=== PATIENT | male | born 1970 | race African-American/Black ===

== ENCOUNTER 2023-01-21 10:30 | Outpatient (CLI) | payer OTHER, SELFPAY ==
--- NOTE | ~2023-01-21 | XR_ITS ---
Left foot Technique: AP and lateral standing views were obtained. Clinical History: Rheumatoid arthritis Findings: No acute fracture or dislocation is seen. Osseous alignment is anatomic. Joint spaces are p reserved without erosive or degenerative change. Soft tissues are unremarkable. Impression: Unremarkable left foot radiographs. Reviewed, dictated and finalized at location . Impression: Unremarkable left foot radiographs.
--- NOTE | ~2023-01-21 | XR_ITS ---
Right ankle Technique: AP, oblique, and lateral views were obtained. Clinical History: Rheumatoid arthritis Findings: No acute fracture or dislocation is seen. Osseous alignment is anatomic. Ankle mortise and other visualized joint spaces are preserved. Soft tissues are otherwise unremarkable. Impression: Unremarkable right ankle. Reviewed, dictated and finalized at location . Impression: Unremarkable right ankle.
--- NOTE | ~2023-01-21 | XR_ITS ---
Left ankle Technique: AP, oblique, and lateral views were obtained. Clinical History: Rheumatoid arthritis Findings: No acute fracture or dislocation is seen. Osseous alignment is anatomic. Ankle mortise and other visualized joint spaces are preserved. Soft tissues are otherwise unremarkable. Impression: Unremarkable left ankle. Reviewed, dictated and finalized at location . Impression: Unremarkable left ankle.
--- NOTE | ~2023-01-21 | XR_ITS ---
Right foot Technique: AP and lateral standing views were obtained. Clinical History: Rheumatoid arthritis Findings: No acute fracture or dislocation is seen. Osseous alignment is anatomic. Mild degenerative change at the first metatarsophalangeal joint noted. Remaining joint spaces are intact. Soft tissues are unremarkable. Impression: Mild osteoarthritis at the first metatarsophalangeal joint. Reviewed, dictated and finalized at [facility]. Impression: Mild osteoarthritis at the first metatarsophalangeal joint.
--- NOTE | ~2023-01-21 | XR_ITS ---
AP and oblique views of the SI joints CLINICAL HISTORY: Rheumatoid arthritis FINDINGS: No degenerative or erosive change of the SI joints noted. There is apparent sclerosis about the left SI joint. No fracture or subluxation evident. Bilateral hip joints appear intact. Soft tiss ues are unremarkable. IMPRESSION: Apparent sclerosis about the left SI joint, but no definite erosive change. Reviewed, dictated and finalized at location .
--- NOTE | ~2023-01-21 | XR_ITS ---
Lumbosacral Spine: AP and lateral views Clinical History: Pain Findings: The normal lordotic curve is maintained. No fracture or subluxation evident. There is mild to moderate degenerative disc narrowing at L3-L4, L4-L5, and L5-S1. There is probable minimal facet a rthropathy from L3 through S1. The sacroiliac joints are normally outlined. Impression: Mild degenerative spondylosis, as above. Reviewed, dictated and finalized at location [facility]. Impression: Mild degenerative spondylosis, as above.
--- NOTE | ~2023-01-21 | XR_ITS ---
Bilateral Hands Technique: Bilateral PA, oblique, and lateral views, and ball-catcher's view were obtained. Clinical History: Rheumatoid arthritis Findings: No acute fracture or dislocation is seen. Osseous alignment is anatomic. Joint spaces are p reserved. Soft tissues are unremarkable. Impression: Unremarkable bilateral hand radiographs. Reviewed, dictated and finalized at location . Impression: Unremarkable bilateral hand radiographs.
[2023-01-21 12:47] LABS: Hepatitis B Surface Antigen Negative (Negative)
[2023-01-21 13:08] LABS: Hepatitis B Surface Anti Res Positive; Hepatitis C Virus Antibody Negative (Negative)
[2023-01-24 10:40] LABS: PNL A Neg Control 0; PNL B Corr Neg Control 1; T SPOT NEG CONTROL Passed; T SPOT POS CONTROL Passed; T Spot TB Result Negative (Negative)
== END 2023-01-21 10:31 | disposition home or self-care (01) ==
PROVIDERS: PCP Internal Medicine; Visit Provider Internal Medicine
DX: M05.79 Rheumatoid arthritis with rheumatoid factor of multiple sites without organ or systems involvement (principal); M53.3 Sacrococcygeal disorders, not elsewhere classified; M47.896 Other spondylosis, lumbar region; M19.071 Primary osteoarthritis, right ankle and foot
CPT/HCPCS: 36415; 72100; 72202; 73130; 73610; 73620; 86481; 86706; 86803; 87340

== ENCOUNTER 2023-03-05 10:13 | Outpatient (CLI) | payer OTHER, SELFPAY ==
[2023-03-05 10:26] LABS: Hematocrit 40.3 % (42.0-52.0); Mean Corpuscular HGB Conc 32.3 g/dl (32-36); Mean Corpuscular Hemoglobin 25.9 pg (26-34); Mean Corpuscular Volume 80.3 fl (80-100); Mean Platelet Volume 8.1 fl (7.4-10.4); Platelet Count Result 369 k/mm3 (150-375); Red Blood Count 5.02 M/mm3 (4.6-6.20); Red Cell Distribution Width 14.8 % (11.5-14.5); White Blood Count 5.2 K/mm3 (4.5-10.0)
[2023-03-05 10:36] LABS: Alanine Aminotransferase 31 U/L (6-50); Albumin Level 4.1 g/dL (3.5-5.1); Alkaline Phosphatase 112 U/L (38-126); Anion Gap 3 mmol/L (8-16); Aspartate Amino Transferase 41 U/L (17-59); Bilirubin,Total 0.7 mg/dL (0.2-1.3); Blood Urea Nitrogen 18 mg/dL (9-20); Calcium 9.3 mg/dL (8.4-10.2); Carbon Dioxide 28 mmol/L (22-30); Chloride 104 mmol/L (98-107); Estimated Glomerular Filt Rate > 60; Glucose 91 mg/dL (65-110); Potassium 4.5 mmol/L (3.4-5.0); Sodium 135 mmol/L (137-145)
== END 2023-03-05 10:14 | disposition home or self-care (01) ==
LOC: ANHLAB 10:14
PROVIDERS: PCP Internal Medicine; Visit Provider Internal Medicine
DX: M05.79 Rheumatoid arthritis with rheumatoid factor of multiple sites without organ or systems involvement (principal); M19.90 Unspecified osteoarthritis, unspecified site
CPT/HCPCS: 36415; 80053; 85027